=== PATIENT | female | born 1970 | race Caucasian/White ===

== ENCOUNTER 2017-10-09 14:34 | Emergency (ER) | payer OTHER ==
[2017-10-09 15:18] VITALS: BP 112/81; PULSE 89; RESP 16; TEMP 97.9
[2017-10-09] MEDS ORDERED: KETOROLAC 30 MG/ML 1 ML VIAL IM STA (15:31)
--- NOTE | 2017-10-09 15:45 | ED ---
General Adult HPI - General Chief complaint: Back Pain/Injury Stated complaint: BACK PAIN Time Seen by Provider: 10/09/17 15:19 Source: patient, RN notes reviewed Mode of arrival: wheelchair Limitations: no limitations - History of Present Illness Initial comments: 46-year-old female presents to the emergency department for a chief complaint of exacerbation of chronic back pain. Patient states the pain worsened today. Patient has been helping her sister with a grad sale and thinks she overdid it. She denies any other acute injuries. Patient denies any bladder or bowel changes. She states she is urinating regularly. Patient denies any new numbness in the lower extremities. No numbness in the saddle region. No shooting pain down the legs. Patient states her back pain is mostly left- sided. Patient states she has chronic back pain which is treated by a pain management doctor. She states she has a stimulator in her spine. Patient states she takes [place] for pain but it is not helping. Patient states she is driving home from the ER today. Patient denies any chance of . Patient has no other complaints at this time including shortness of breath, chest pain, abdominal pain, nausea or vomiting, headache, or visual changes. - Related Data Home Medications Medication Instructions Recorded Confirmed Albuterol Inhaler [Ventolin Hfa 2 puff INHALATION RT-Q6H PRN 07/07/15 10/09/17 Inhaler] Diazepam [Valium] 10 mg PO BID PRN 07/07/15 10/09/17 Furosemide [Lasix] 20 mg PO DAILY PRN 07/07/15 10/09/17 HYDROcodone/APAP 10-325MG [[place] 1 tab PO Q4HR PRN 07/07/15 10/09/17 10-325] Lurasidone HCl [Latuda] 20 mg PO HS 07/07/15 10/09/17 Polyethylene Glycol 3350 [Miralax] 17 gm PO DAILY PRN 07/07/15 10/09/17 lamoTRIgine [LaMICtal] 100 mg PO BID 07/07/15 10/09/17 Dextroamphetamine/Amphetamine 10 mg PO DAILY@1200 04/04/16 10/09/17 [Adderall Xr] Dextroamphetamine/Amphetamine 30 mg PO QAM 04/04/16 10/09/17 [Adderall Xr] Previous Rx's Medication Instructions Recorded Ciprofloxacin HCl [Cipro] 500 mg PO Q12HR #14 tablet 04/04/16 Ondansetron Odt [Zofran ODT] 4 mg PO Q8HR PRN #20 tab 04/04/16 Phenazopyridine [Pyridium] 100 mg PO TID #9 tablet 04/04/16 predniSONE 50 mg PO DAILY #5 tablet 10/09/17 Allergies Allergy/AdvReac Type Severity Reaction Status Date / Time azithromycin [From Zithromax] Allergy Swelling Verified 10/09/17 15:18 Review of Systems ROS Statement: Those systems with pertinent positive or pertinent negative responses have been documented in the HPI. ROS Other: All systems not noted in ROS Statement are negative. Past Medical History Past Medical History: Fibromyalgia Additional Past Medical History / Comment(s): BACK PAIN, History of Any Multi-Drug Resistant Organisms: None Reported Past Surgical History: Back Surgery Additional Past Surgical History / Comment(s): PAIN PUMP Past Psychological History: Anxiety, Bipolar Smoking Status: Never smoker Past Alcohol Use History: None Reported Past Drug Use History: None Reported General Exam Limitations: no limitations General appearance: alert, in no apparent distress Head exam: Present: atraumatic, normocephalic, normal inspection Neck exam: Present: normal inspection, full ROM. Absent: tenderness, meningismus, lymphadenopathy Respiratory exam: Present: normal lung sounds bilaterally. Absent: respiratory distress, wheezes, rales, rhonchi, stridor Cardiovascular Exam: Present: regular rate, normal rhythm, normal heart sounds. Absent: systolic murmur, diastolic murmur, rubs, gallop, clicks Extremities exam: Present: normal capillary refill (Refill less than 2 seconds in PD and PT pulses 2+ in lower extremities bilaterally. Sensation intact in lower extremities bilaterally). Absent: pedal edema Back exam: Present: tenderness (Tenderness to the lumbar spine.), paraspinal tenderness (Lower left sided paraspinal tenderness.), vertebral tenderness ( Spinal tenderness over the lumbar spine.). Absent: full ROM (Patient has limited flexion and extension of the lumbar spine.) Neurological exam: Present: alert, oriented X3, CN II-XII intact Psychiatric exam: Present: normal affect, normal mood Course Vital Signs 10/09/17 15:16 Temperature 97.9 F Pulse Rate 89 Respiratory 16 Rate Blood Pressure 112/81 O2 Sat by Pulse 100 Oximetry Medical Decision Making - Medical Decision Making 46-year-old female since to the emergency determine for chief complaint of chronic back pain exacerbation. Patient states she it was helping her sister with a garage sale today and over did it. No other acute injuries. Patient denies IV drug use, saddle anesthesia, or bladder or bowel changes. Patient is urinating regularly. Patient has chronic numbness in her lower extremities bilaterally. No new numbness. No shooting pains. On exam patient does have limited range of motion. She did walk into the emergency department. Neurovascular intact in lower extremities bilaterally. I offered patient an x- ray which she thinks is necessary. X-ray showed no acute fractures or dislocations. There is mild retrolisthesis. Patient is driving home today so was given Toradol. Patient states the Toradol helped with her pain and she is comfortable going home and following up with her pain management doctor. She will continue the [place] given by pain management. She can take Motrin on top of that. She was also given a prescription for a steroid which she will take for that left-sided back pain. She is aware to return to the emergency Department if she has any worsening symptoms or bladder or bowel changes. Otherwise she will follow-up with pain management. Disposition Clinical Impression: Back pain Disposition: HOME SELF-CARE Condition: Good Instructions: Chronic Back Pain (ED) Additional Instructions: Please continue [place] for pain relief. You may also take Motrin. Take steroid as directed. Return to the emergency department if you have any worsening symptoms or bladder/bowel changes. Otherwise follow-up with pain management doctor in one to 2 days. Prescriptions: predniSONE 50 mg PO DAILY #5 tablet Is patient prescribed a controlled substance at d/c from ED?: No Referrals: Nonstaff,Physician [Primary Care Provider] - 1-2 days Time of Disposition: 16:22
--- NOTE | 2017-10-09 15:59 | XR ---
EXAMINATION TYPE: XR lumbar spine 2 or 3V DATE OF EXAM: 10/09/2017 COMPARISON: 08/11/2014 HISTORY: Low back pain TECHNIQUE: Three-view lumbar spine FINDINGS: Pedicle screws are present L5 and S1. Laminectomies at L5. Remaining pedicles are intact. D isc space narrowing is present L5-S1 and mild disc space narrowing is seen the remaining lumbar spine . Mild retrolisthesis of L2 on L3 appears to be present. Catheter is present in the epidural space. IMPRESSION: 1. Degenerative disc changes. 2. Minimal retrolisthesis of L2 posteriorly L3.
== END 2017-10-09 16:32 | disposition home or self-care (01) ==
LOC: EC 14:34
DX: M54.9 Dorsalgia, unspecified (principal); G89.29 Other chronic pain; M79.7 Fibromyalgia; F31.9 Bipolar disorder, unspecified; F41.9 Anxiety disorder, unspecified; Z79.899 Other long term (current) drug therapy; Z88.1 Allergy status to other antibiotic agents; Z98.890 Other specified postprocedural states
CPT/HCPCS: 72100; 99283; 96372; J1885

== ENCOUNTER 2017-12-30 03:47 | Observation (INO) | payer OTHER ==
[2017-12-30] MEDS ORDERED: SODIUM CHLORIDE 0.9% 1,000 ML IV STA (03:51)
[2017-12-30] MEDS ORDERED: ACETAMINOPHEN IV (For NPO) 1,000 MG in EMPTY BAG 1 BAG IVPB ONE (04:43)
[2017-12-30] MEDS ORDERED: MAG HYDROX/AL HYDROX/SIMETH 30 ML, HYOSCYAMINE ELIXIR 10 ML, CIMETIDINE HCL 300 MG, LID... PO STA ×4 (04:47)
--- NOTE | 2017-12-30 04:49 | ED ---
General Adult HPI - General Chief complaint: Back Pain/Injury Stated complaint: abd pain Time Seen by Provider: 12/30/17 03:51 Source: patient, EMS, RN notes reviewed, old records reviewed Mode of arrival: EMS Limitations: no limitations - History of Present Illness Initial comments: 47-year-old female presenting with epigastric abdominal pain and chest pain. Patient's pain began several hours prior to presentation. Describes it as sharp pain in the middle of her abdomen and lower chest with some pain radiating to her back. Denies history of pancreatitis. She does admit to occasional alcohol. She has chronic low back pain for which she has a Dilaudid pain pump. Denies significant nausea or vomiting. Denies fever or chills. Patient has past surgical history of appendectomy, she still has her gallbladder. Pain woke patient from sleep. Denies radiating pain to her arms or jaw. - Related Data Home Medications Medication Instructions Recorded Confirmed Albuterol Inhaler [Ventolin Hfa 2 puff INHALATION RT-Q6H PRN 07/07/15 10/09/17 Inhaler] Diazepam [Valium] 10 mg PO BID PRN 07/07/15 10/09/17 Furosemide [Lasix] 20 mg PO DAILY PRN 07/07/15 10/09/17 HYDROcodone/APAP 10-325MG [[place] 1 tab PO Q4HR PRN 07/07/15 10/09/17 10-325] Lurasidone HCl [Latuda] 20 mg PO HS 07/07/15 10/09/17 Polyethylene Glycol 3350 [Miralax] 17 gm PO DAILY PRN 07/07/15 10/09/17 lamoTRIgine [LaMICtal] 100 mg PO BID 07/07/15 10/09/17 Dextroamphetamine/Amphetamine 10 mg PO DAILY@1200 04/04/16 10/09/17 [Adderall Xr] Dextroamphetamine/Amphetamine 30 mg PO QAM 04/04/16 10/09/17 [Adderall Xr] Previous Rx's Medication Instructions Recorded Ciprofloxacin HCl [Cipro] 500 mg PO Q12HR #14 tablet 04/04/16 Ondansetron Odt [Zofran ODT] 4 mg PO Q8HR PRN #20 tab 04/04/16 Phenazopyridine [Pyridium] 100 mg PO TID #9 tablet 04/04/16 predniSONE 50 mg PO DAILY #5 tablet 10/09/17 Allergies Allergy/AdvReac Type Severity Reaction Status Date / Time azithromycin [From Zithromax] Allergy Swelling Verified 10/09/17 15:18 Review of Systems ROS Statement: Those systems with pertinent positive or pertinent negative responses have been documented in the HPI. ROS Other: All systems not noted in ROS Statement are negative. Past Medical History Past Medical History: Fibromyalgia Additional Past Medical History / Comment(s): BACK PAIN, History of Any Multi-Drug Resistant Organisms: None Reported Past Surgical History: Back Surgery Additional Past Surgical History / Comment(s): PAIN PUMP Past Psychological History: Anxiety, Bipolar Smoking Status: Never smoker Past Alcohol Use History: None Reported Past Drug Use History: None Reported General Exam Limitations: no limitations General appearance: alert, in no apparent distress Head exam: Present: atraumatic, normocephalic Eye exam: Present: normal appearance, PERRL ENT exam: Present: normal exam Neck exam: Present: normal inspection. Absent: tenderness, meningismus Respiratory exam: Present: normal lung sounds bilaterally. Absent: respiratory distress Cardiovascular Exam: Present: regular rate, normal rhythm GI/Abdominal exam: Present: soft, tenderness (Epigastric tenderness to palpation ). Absent: distended, guarding, rebound Extremities exam: Present: normal inspection, normal capillary refill. Absent: pedal edema Neurological exam: Present: alert, oriented X3. Absent: motor sensory deficit Psychiatric exam: Present: normal affect, normal mood Skin exam: Present: warm, dry, intact. Absent: cyanosis, diaphoretic Course Vital Signs 12/30/17 12/30/17 03:54 06:15 Temperature 97.9 F Pulse Rate 68 73 Respiratory 16 18 Rate Blood Pressure 136/70 87/54 O2 Sat by Pulse 100 98 Oximetry EKG Findings - EKG Comments: EKG Findings:: EKG: Normal sinus rhythm, rate of 75, MT interval 142, QRS duration 60, QTC 444, no ST segment elevation or depression. Medical Decision Making - Medical Decision Making 47-year-old female presenting with chief complaint of abdominal pain and lower chest pain. Patient's symptoms do seem more consistent with abdominal pain. However she describes a chest pain and pressure associated with this. She has no known history of CAD. She has some mild abdominal tenderness. Workup in the emergency department reveals normal CBC, normal CMP, troponin is negative. CT abdomen is obtained that is negative for any acute intra-abdominal process. Symptoms likely related to gastritis however she continues to describe a chest pressure. She will be kept in observation for continue symptomatic treatment, she is started on a proton pump inhibitor. Serial cardiac enzymes will be obtained to ensure that this is noncardiac in nature. - Lab Data Result diagrams: 12/30/17 05:08 12/30/17 05:08 Lab Results 12/30/17 12/30/17 12/30/17 Range/Units 05:08 05:08 05:08 WBC 9.6 (3.8-10.6) k/uL RBC 4.58 (3.80-5.40) m/uL Hgb 12.4 (11.4-16.0) gm/dL Hct 39.0 (34.0-46.0) % MCV 85.1 (80.0-100.0) fL MCH 27.1 (25.0-35.0) pg MCHC 31.8 (31.0-37.0) g/dL RDW 14.1 (11.5-15.5) % Plt Count 216 (150-450) k/uL Neutrophils % 84 % Lymphocytes % 11 % Monocytes % 3 % Eosinophils % 1 % Basophils % 0 % Neutrophils # 8.0 H (1.3-7.7) k/uL Lymphocytes # 1.1 (1.0-4.8) k/uL Monocytes # 0.3 (0-1.0) k/uL Eosinophils # 0.1 (0-0.7) k/uL Basophils # 0.0 (0-0.2) k/uL Sodium 138 (137-145) mmol/L Potassium 3.6 (3.5-5.1) mmol/L Chloride 107 (98-107) mmol/L Carbon Dioxide 24 (22-30) mmol/L Anion Gap 7 mmol/L BUN 12 (7-17) mg/dL Creatinine 0.80 (0.52-1.04) mg/dL Est GFR (CKD-EPI)AfAm >90 (>60 ml/min/1.73 sqM) Est GFR (CKD-EPI)NonAf 88 (>60 ml/min/1.73 sqM) Glucose 110 H (74-99) mg/dL Plasma Lactic Acid [place] 1.2 (0.7-2.0) mmol/L Calcium 9.0 (8.4-10.2) mg/dL Total Bilirubin 0.2 (0.2-1.3) mg/dL AST 65 H (14-36) U/L ALT 45 (9-52) U/L Alkaline Phosphatase 96 (38-126) U/L Troponin I (0.000-0.034) ng/mL Total Protein 6.2 L (6.3-8.2) g/dL Albumin 3.6 (3.5-5.0) g/dL Amylase 59 (30-110) U/L Lipase 42 (23-300) U/L 12/30/17 Range/Units 05:08 WBC (3.8-10.6) k/uL RBC (3.80-5.40) m/uL Hgb (11.4-16.0) gm/dL Hct (34.0-46.0) % MCV (80.0-100.0) fL MCH (25.0-35.0) pg MCHC (31.0-37.0) g/dL RDW (11.5-15.5) % Plt Count (150-450) k/uL Neutrophils % % Lymphocytes % % Monocytes % % Eosinophils % % Basophils % % Neutrophils # (1.3-7.7) k/uL Lymphocytes # (1.0-4.8) k/uL Monocytes # (0-1.0) k/uL Eosinophils # (0-0.7) k/uL Basophils # (0-0.2) k/uL Sodium (137-145) mmol/L Potassium (3.5-5.1) mmol/L Chloride (98-107) mmol/L Carbon Dioxide (22-30) mmol/L Anion Gap mmol/L BUN (7-17) mg/dL Creatinine (0.52-1.04) mg/dL Est GFR (CKD-EPI)AfAm (>60 ml/min/1.73 sqM) Est GFR (CKD-EPI)NonAf (>60 ml/min/1.73 sqM) Glucose (74-99) mg/dL Plasma Lactic Acid [place] (0.7-2.0) mmol/L Calcium (8.4-10.2) mg/dL Total Bilirubin (0.2-1.3) mg/dL AST (14-36) U/L ALT (9-52) U/L Alkaline Phosphatase (38-126) U/L Troponin I <0.012 (0.000-0.034) ng/mL Total Protein (6.3-8.2) g/dL Albumin (3.5-5.0) g/dL Amylase (30-110) U/L Lipase (23-300) U/L Disposition Clinical Impression: Abdominal pain, Chest pain Disposition: ADMITTED IP TO THIS [facility] Condition: Stable Is patient prescribed a controlled substance at d/c from ED?: No Referrals: Nonstaff,Physician [Primary Care Provider] - 1-2 days Decision to Admit Reason: Admit from EC Decision Date: 12/30/17 Decision Time: 06:52
[2017-12-30 05:24] LABS: Basophils % (A) 0 %; Eosinophils # (A) 0.1 k/uL (0-0.7); Eosinophils % (A) 1 %; HGB 12.4 gm/dL (11.4-16.0); Lymphocytes # (A) 1.1 k/uL (1.0-4.8); Lymphocytes % (A) 11 %; MCH 27.1 pg (25.0-35.0); MCHC 31.8 g/dL (31.0-37.0); MCV 85.1 fL (80.0-100.0); Mean Platelet Volume 6.3; Monocytes # (A) 0.3 k/uL (0-1.0); Monocytes % (A) 3 %; Neutrophils % (A) 84 %; Platelet Count 216 k/uL (150-450); RBC 4.58 m/uL (3.80-5.40); RDW 14.1 % (11.5-15.5); WBC 9.6 k/uL (3.8-10.6)
[2017-12-30 05:38] LABS: ALT 45 U/L (9-52); AST 65 U/L (14-36); Albumin 3.6 g/dL (3.5-5.0); Alkaline Phosphatase 96 U/L (38-126); Amylase 59 U/L (30-110); Anion Gap 7 mmol/L; Blood Urea Nitrogen 12 mg/dL (7-17); Carbon Dioxide 24 mmol/L (22-30); Chloride 107 mmol/L (98-107); Glucose 110 mg/dL (74-99); Lipase 42 U/L (23-300); Potassium 3.6 mmol/L (3.5-5.1); Sodium 138 mmol/L (137-145); Total Bilirubin 0.2 mg/dL (0.2-1.3); Total Protein 6.2 g/dL (6.3-8.2)
--- NOTE | 2017-12-30 06:37 | CT ---
EXAM: CT Abdomen and Pelvis With Intravenous Contrast Indication: abdominal pain TECHNIQUE: Axial computed tomography images of the abdomen and pelvis with intravenous contrast. CTDI is 33.5 mGy and DLP is 1304.9 mGy-cm. This CT exam was performed using one or more of the following dose reduction techniques: automated exposure control, adjustment of the mA and/or kV according to patient size, and/or use of iterative reconstruction technique. COMPARISON: No relevant prior studies available. FINDINGS: Lung bases: Unremarkable. No mass. No consolidation. ABDOMEN: Liver: Unremarkable. No mass. Gallbladder and bile ducts: Unremarkable. No calcified stones. No ductal dilation. Pancreas: Unremarkable. No mass. No ductal dilation. Spleen: Unremarkable. No splenomegaly. Adrenals: Unremarkable. No mass. Kidneys and ureters: Unremarkable. No solid mass. No hydronephrosis. Stomach and bowel: Unremarkable. No obstruction. No mucosal thickening. PELVIS: Appendix: Surgical clips noted adjacent to cecum appendix not identified. No inflammatory changes noted Bladder: Unremarkable. No mass. Reproductive: Unremarkable as visualized. ABDOMEN and PELVIS: Intraperitoneal space: Unremarkable. No free air. No significant fluid collection. Bones/joints: No acute fracture. No dislocation. Soft tissues: Spinal stimulator implanted over the anterior right lower abdominal wall Vasculature: Unremarkable. No abdominal aortic aneurysm. Lymph nodes: Unremarkable. No enlarged lymph nodes. IMPRESSION: No acute abnormality.
[2017-12-30] MEDS ORDERED: PANTOPRAZOLE 40 MG/10 ML VIAL IVP STA (06:44)
[2017-12-30] MEDS ORDERED: SODIUM CHLORIDE 0.9% 1,000 ML IV SCH (06:45)
[2017-12-30] MEDS ORDERED: ONDANSETRON 4 MG/2 ML VIAL IVP PRN (06:45)
[2017-12-30] MEDS ORDERED: NALOXONE 0.4 MG/ML 1 ML VIAL IV PRN (06:45)
[2017-12-30] MEDS ORDERED: ACETAMINOPHEN TAB 325 MG TAB PO PRN (06:45)
[2017-12-30] MEDS ORDERED: MAG HYDROX/AL HYDROX/SIMETH 30 ML, HYOSCYAMINE ELIXIR 10 ML, CIMETIDINE HCL 300 MG PO PRN ×3 (06:47)
[2017-12-30 07:35] LABS: Appearance,Urine Clear (Clear); Bilirubin,Urine Negative (Negative); Blood,Urine Negative (Negative); Color,Urine Yellow; Glucose,Urine (UA) Negative (Negative); Ketones,Urine Negative (Negative); Leukocyte Esterase,Urine Negative (Negative); Nitrite,Urine Negative (Negative); PH, Urine 7.5 (5.0-8.0); Protein,Urine Negative (Negative); Urobilinogen,Urine <2.0 mg/dL (<2.0)
[2017-12-30 08:12] LABS: Specific Gravity,Urine >1.050 (1.001-1.035)
[2017-12-30 09:23] VITALS: RESP 16
[2017-12-30 11:50] LABS: Creatine Kinase 76 U/L (30-135)
[2017-12-30 12:01] LABS: Creatine Kinase MB 1.2 ng/mL (0.0-2.4); Troponin I <0.012 ng/mL (0.000-0.034)
[2017-12-30 14:50] VITALS: BP 120/74; PULSE 64; TEMP 97.2
--- NOTE | 2017-12-30 14:50 | P.HPIM ---
History of Present Illness 47-year-old female presenting with epigastric abdominal pain and chest pain. Patient's pain began several hours prior to presentation. Describes it as sharp pain in the middle of her abdomen and lower chest with some pain radiating to her back. Denies history of pancreatitis. She does admit to occasional alcohol. She has chronic low back pain for which she has a Dilaudid pain pump. Denies significant nausea or vomiting. Denies fever or chills. Patient has past surgical history of appendectomy, she still has her gallbladder. Pain woke patient from sleep. Denies radiating pain to her arms or jaw. Patient denied any fever chills. Patient was started on Protonix patient is able to tolerate liquid diet will be advanced to soft diet and patient will be discharged on Prilosec. CAT scan of the abdomen did not show any significant abnormality. 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 Review of Systems REVIEW OF SYSTEMS: CONSTITUTIONAL: No fever, no malaise, no fatigue. HEENT: No recent visual problems or hearing problems. Denied any sore throat. CARDIOVASCULAR: No chest pain, orthopnea, PND, no palpitations, no syncope. PULMONARY: No shortness of breath, no cough, no hemoptysis. GASTROINTESTINAL: No diarrhea, no nausea, no vomiting. NEUROLOGICAL: No headaches, no weakness, no numbness. HEMATOLOGICAL: Denies any bleeding or petechiae. GENITOURINARY: Denies any burning micturition, frequency, or urgency. MUSCULOSKELETAL/RHEUMATOLOGICAL: Denies any joint pain, swelling, or any muscle pain. ENDOCRINE: Denies any polyuria or polydipsia. The rest of the 14-point review of systems is negative. Past Medical History Past Medical History: Fibromyalgia Additional Past Medical History / Comment(s): Chronic low back pain with dilaudid pain pump in place, arthritis bilateral knees, occasional constipation. History of Any Multi-Drug Resistant Organisms: None Reported Past Surgical History: Appendectomy, Back Surgery, Section, Orthopedic Surgery, Tonsillectomy Additional Past Surgical History / Comment(s): Low back surgery x3 with rods and screws, pain pump, L plantar fasciotomy, Past Anesthesia/Blood Transfusion Reactions: No Reported Reaction, Motion Sickness Smoking Status: Former smoker - Past Family History Father Family Medical History: Coronary Artery Disease (CAD) Additional Family Medical History / Comment(s): Father had CABG. He is from unknown causes. Mother Family Medical History: Fibromyalgia, Osteoarthritis (OA) Additional Family Medical History / Comment(s): Mother id 68yrs old and has back problems. Back problems run in mother's side of family. Medications and Allergies Home Medications Medication Instructions Recorded Confirmed Type HYDROcodone/APAP 10-325MG [[place] 1 tab PO Q4HR PRN 07/07/15 12/30/17 History 10-325] Cyclobenzaprine HCl 10 mg PO TID PRN 12/30/17 12/30/17 History Diazepam 2 mg PO DAILY PRN 12/30/17 12/30/17 History Gabapentin [Neurontin] 300 mg PO TID 12/30/17 12/30/17 History Omeprazole [PriLOSEC] 40 mg PO AC-BRKFST #30 capsule. 12/30/17 Rx Pregabalin [Lyrica] 50 mg PO TID 12/30/17 12/30/17 History Allergies Allergy/AdvReac Type Severity Reaction Status Date / Time azithromycin [From Zithromax] Allergy Swelling Verified 10/09/17 15:18 Physical Exam Vitals: Vital Signs Temp Pulse Pulse Resp BP BP Pulse Ox 12/30/17 09:27 96.9 F L 58 L 16 101/64 99 12/30/17 08:59 96.9 F L 59 L 16 106/65 99 12/30/17 08:47 58 L 18 101/64 97 12/30/17 08:40 69 18 106/81 98 12/30/17 07:19 66 18 104/57 99 12/30/17 07:00 61 18 97/71 99 12/30/17 06:15 73 18 87/54 98 12/30/17 03:54 97.9 F 68 16 136/70 100 Intake and Output 12/29/17 12/30/17 12/30/17 22:59 06:59 14:59 Intake Total 900 Balance 900 Intake: Amount of Fluid Infused ( 300 ml) Oral 600 Other: # Voids 1 Weight 95.254 kg PHYSICAL EXAMINATION: GENERAL: The patient is alert and oriented x3, not in any acute distress. Well developed, well nourished. HEENT: Pupils are round and equally reacting to light. EOMI. No scleral icterus. No conjunctival pallor. Normocephalic, atraumatic. No pharyngeal erythema. No thyromegaly. CARDIOVASCULAR: S1 and S2 present. No murmurs, rubs, or gallops. PULMONARY: Chest is clear to auscultation, no wheezing or crackles. ABDOMEN: Soft, nontender, nondistended, normoactive bowel sounds. No palpable organomegaly. Pain pump right midabdominal area MUSCULOSKELETAL: No joint swelling or deformity. EXTREMITIES: No cyanosis, clubbing, or pedal edema. NEUROLOGICAL: Gross neurological examination did not reveal any focal deficits. SKIN: No rashes. Results CBC & Chem 7: 12/30/17 05:08 12/30/17 05:08 Labs: Abnormal Lab Results - Last 24 Hours (Table) 12/30/17 12/30/17 12/30/17 Range/Units 05:08 05:08 07:17 Neutrophils # 8.0 H (1.3-7.7) k/uL Glucose 110 H (74-99) mg/dL AST 65 H (14-36) U/L Total Protein 6.2 L (6.3-8.2) g/dL Ur Specific [place] >1.050 H (1.001-1.035) Thrombosis Risk Factor Assmnt - Choose All That Apply Any of the Below Risk Factors Present?: Yes Each Factor Represents 1 point: Age 41-60 years, Obesity (BMI >25) Other Risk Factors: No Other congenital or acquired thrombophilia - If yes, enter type in comment: No Thrombosis Risk Factor Assessment Total Risk Factor Score: 2 Thrombosis Risk Factor Assessment Level: Low Risk Assessment and Plan Plan: -Abdominal pain mostly epigastric: Probably has peptic ulcer disease or gastritis patient will be prescribed 15 days of Prilosec can resume Zantac after that. CAT scan of the abdomen is negative abdomen is soft nonsurgical abdomen. -Fibromyalgia -Chronic back pain Bipolar disorder Patient can resume and continue her rest of her home medications follow with the primary care physician in 3-7 days..
--- NOTE | 2017-12-30 14:50 | P.DS ---
Providers Date of admission: 12/30/17 06:45 Attending physician: Dandre Benavides Primary care physician: Physician Nonstaff Hospital Course: As mentioned in HPI Patient Condition at Discharge: Stable Plan - Discharge Summary Discharge Rx Participant: No New Discharge Prescriptions: New Omeprazole [PriLOSEC] 40 mg PO AC-BRKFST #30 capsule.dr Villegas Ranitidine HCl [Zantac] 150 mg PO BID No Action HYDROcodone/APAP 10-325MG [[place] 10-325] 1 tab PO Q4HR PRN PRN Reason: Pain Diazepam 2 mg PO DAILY PRN PRN Reason: Anxiety Cyclobenzaprine HCl 10 mg PO TID PRN PRN Reason: Muscle Spasm Pregabalin [Lyrica] 50 mg PO TID Gabapentin [Neurontin] 300 mg PO TID Discharge Medication List HYDROcodone/APAP 10-325MG [[place] 10-325] 1 tab PO Q4HR PRN 07/07/15 [History] Cyclobenzaprine HCl 10 mg PO TID PRN 12/30/17 [History] Diazepam 2 mg PO DAILY PRN 12/30/17 [History] Gabapentin [Neurontin] 300 mg PO TID 12/30/17 [History] Omeprazole [PriLOSEC] 40 mg PO AC-BRKFST #30 capsule. 12/30/17 [Rx] Pregabalin [Lyrica] 50 mg PO TID 12/30/17 [History] Follow up Appointment(s)/Referral(s): Nonstaff,Physician [Primary Care Provider] - 1-2 days Patient Instructions/Handouts: Gas and Bloating (GEN) Discharge Disposition: HOME SELF-CARE
[2017-12-31] MEDS ORDERED: PANTOPRAZOLE 40 MG/10 ML VIAL IVP SCH (09:00)
== END 2017-12-30 14:58 | disposition home or self-care (01) ==
LOC: EC 03:47 → 3OBS 06:45 → 4MS4W 08:28
PROVIDERS: ADMIT Internal Medicine; ATTEND Internal Medicine
DX: R10.13 Epigastric pain (principal); R07.89 Other chest pain; G89.29 Other chronic pain; M54.5 Low back pain; Z79.891 Long term (current) use of opiate analgesic; Z79.899 Other long term (current) drug therapy; Z88.1 Allergy status to other antibiotic agents; M79.7 Fibromyalgia; F41.9 Anxiety disorder, unspecified; F31.9 Bipolar disorder, unspecified; M17.0 Bilateral primary osteoarthritis of knee; K59.00 Constipation, unspecified; Z87.891 Personal history of nicotine dependence; Z82.49 Family history of ischemic heart disease and other diseases of the circulatory system; E66.9 Obesity, unspecified; Z68.32 Body mass index [BMI] 32.0-32.9, adult; Z90.49 Acquired absence of other specified parts of digestive tract
CPT/HCPCS: 99285; 96365 ×2; 96366 ×4; 96361 ×4; 96375 ×2; 36415; 93005; 80053; 82150; 82550; 82553; 83605; 83690; 84484; 85025; 81003; 74177; G0378 ×2; J0131; C9113; Q9967

== ENCOUNTER 2018-05-09 07:29 | Emergency (ER) | payer OTHER ==
[2018-05-09 07:35] VITALS: RESP 18
[2018-05-09] MEDS ORDERED: KETOROLAC 60 MG/2 ML VIAL IM STA (08:25)
--- NOTE | 2018-05-09 08:29 | ED ---
Lower Extremity Injury HPI - General Chief Complaint: Extremity Injury, Lower Stated Complaint: lt sided hip pain Time Seen by Provider: 05/09/18 08:04 Source: patient, RN notes reviewed Mode of arrival: ambulatory Limitations: no limitations - History of Present Illness Initial Comments: 47-year-old female presents emergency Department chief complaint left hip pain. Patient states she's been having ongoing issues for last 2 months and states that has worsened. Patient states that she smokes have an MRI states that her father and states that she did not go. Patient states the pain worsened recently. She states it feels deep in the joint. Patient states that she does have chronic back issues but does not feel like it stems from her back at this time. Denies any bowel bladder and Kienitz retention. Patient states she does take chronic pain meds and has a morphine pump. Patient denies any dysuria, hematuria. Denies any redness or joint. - Related Data Home Medications Medication Instructions Recorded Confirmed HYDROcodone/APAP 10-325MG [[place] 1 tab PO Q4HR PRN 07/07/15 12/30/17 10-325] Cyclobenzaprine HCl 10 mg PO TID PRN 12/30/17 12/30/17 Diazepam 2 mg PO DAILY PRN 12/30/17 12/30/17 Gabapentin [Neurontin] 300 mg PO TID 12/30/17 12/30/17 Pregabalin [Lyrica] 50 mg PO TID 12/30/17 12/30/17 Previous Rx's Medication Instructions Recorded Omeprazole [PriLOSEC] 40 mg PO AC-BRKFST #30 capsule. 12/30/17 Allergies Allergy/AdvReac Type Severity Reaction Status Date / Time azithromycin [From Zithromax] Allergy Swelling Verified 05/09/18 07:35 Review of Systems ROS Statement: Those systems with pertinent positive or pertinent negative responses have been documented in the HPI. ROS Other: All systems not noted in ROS Statement are negative. Past Medical History Past Medical History: Fibromyalgia Additional Past Medical History / Comment(s): Chronic low back pain with dilaudid pain pump in place, arthritis bilateral knees, occasional constipation. History of Any Multi-Drug Resistant Organisms: None Reported Past Surgical History: Appendectomy, Back Surgery, Section, Orthopedic Surgery, Tonsillectomy Additional Past Surgical History / Comment(s): Low back surgery x3 with rods and screws, pain pump, L plantar fasciotomy, Past Anesthesia/Blood Transfusion Reactions: No Reported Reaction, Motion Sickness Past Psychological History: Anxiety, Bipolar Smoking Status: Former smoker Past Alcohol Use History: None Reported Past Drug Use History: Opiates - Past Family History Father Family Medical History: Coronary Artery Disease (CAD) Additional Family Medical History / Comment(s): Father had CABG. He is from unknown causes. Mother Family Medical History: Fibromyalgia, Osteoarthritis (OA) Additional Family Medical History / Comment(s): Mother id 68yrs old and has back problems. Back problems run in mother's side of family. General Exam Limitations: no limitations General appearance: alert, in no apparent distress Head exam: Present: atraumatic, normocephalic, normal inspection Neck exam: Present: normal inspection. Absent: tenderness, meningismus, lymphadenopathy Respiratory exam: Present: normal lung sounds bilaterally. Absent: respiratory distress, wheezes, rales, rhonchi, stridor Cardiovascular Exam: Present: regular rate, normal rhythm, normal heart sounds. Absent: systolic murmur, diastolic murmur, rubs, gallop, clicks Extremities exam: Present: other (Left hip full range of motion though mild discomfort with certain range of motion, neurovascular intact with equal pedal pulses, no warmth or increased redness to left hip) Course Vital Signs 05/09/18 07:31 Temperature 98.1 F Pulse Rate 79 Respiratory 18 Rate Blood Pressure 110/70 O2 Sat by Pulse 100 Oximetry Medical Decision Making - Medical Decision Making 47-year-old female presents emergency from for left hip pain. Patient had prior imaging including x-rays which show no acute abnormality. Patient was advised to have an MRI as his been a chronic issue. Patient is advised to call her physician for her MRI prescription patient be given an injection of Toradol at this time. There is no concern for septic joint, there most likely is underlying labral tear. Patient was in physical therapy had improvement prior. Disposition Clinical Impression: Left hip pain Disposition: HOME SELF-CARE Condition: Stable Instructions: Hip Pain (ED) Additional Instructions: Please return to the Emergency Department if symptoms worsen or any other concerns. Is patient prescribed a controlled substance at d/c from ED?: No Referrals: Nonstaff,Physician [Primary Care Provider] - 1-2 days Time of Disposition: 08:28
[2018-05-09 09:04] VITALS: BP 111/68; PULSE 77; TEMP 98
== END 2018-05-09 08:59 | disposition home or self-care (01) ==
LOC: EC 07:29
DX: M25.552 Pain in left hip (principal); M79.7 Fibromyalgia; G89.29 Other chronic pain; M54.5 Low back pain; Z87.891 Personal history of nicotine dependence; Z79.899 Other long term (current) drug therapy; Z88.1 Allergy status to other antibiotic agents; Z98.890 Other specified postprocedural states
CPT/HCPCS: 99283; 96372; J1885

== ENCOUNTER 2018-09-03 11:37 | Day surgery (SDC) | payer OTHER ==
[2018-09-01 18:26] VITALS: BMI 32.8
[2018-09-03] MEDS ORDERED: LIDOCAINE 1% 20 ML VIAL (10MG/ML) FOR IV START INTRADERMA ONE (12:20)
[2018-09-03] MEDS ORDERED: LACTATED RINGERS 1,000 ML IV ONE (12:21)
[2018-09-03 12:27] VITALS: RESP 16; TEMP 98.1
[2018-09-03 12:32] LABS: Glucose,Whole Blood 84 mg/dL (75-99)
[2018-09-03] MEDS ORDERED: fentaNYL (PF) 50 MCG/ML 2 ML AMP ONE (12:53)
[2018-09-03] MEDS ORDERED: PROPOFOL 10 MG/ML 20 ML VIAL IV ONE (12:53)
[2018-09-03] MEDS ORDERED: MIDAZOLAM 2 MG/2 ML VIAL ONE (12:53)
--- NOTE | 2018-09-03 13:45 | P.PCN ---
Date of Procedure: 09/03/18 Description of Procedure: Brief history: 47-year-old female with a medical history significant for Virk's esophagus and peptic ulcer disease who presents for outpatient EGD and colonoscopy. The patient reports symptoms of [place] mouth, coughing and choking which is worse with lying down. She reports symptoms of dysphagia and odynophagia which can periodically occur with both liquids and solids. She is currently on lansoprazole and ranitidine which she takes at night. She reports occasional nausea and vomiting. She states that symptoms are worse with acidic foods. She denies any family history of GI malignancy except in her grandmother who have colon cancer. She does note intermittent blood per rectum. She reports constipation for which she has tried MiraLAX. She does report a borderline today. Remote history of colonoscopy and EGD 2 years ago per her report for surveillance of her Virk's esophagus. Procedure performed: Esophagogastroduodenoscopy with biopsy Colonoscopy Estimated blood loss: Minimal. Preoperative diagnosis: History of Virk's esophagus, GERD, hematochezia Anesthesia: MAC Procedure: After informed consent was obtained from the patient was brought into the endoscopy unit and IV sedation was administered by anesthesia under continuous monitoring. Initially upper endoscopy was done. The Olympus GF 190 video endoscope was inserted inserted into the mouth and esophagus intubated without any difficulty and was gradually advanced into the stomach and duodenum and carefully examined. The bulb and second part of the duodenum appeared normal, biopsied. The scope was then withdrawn into the stomach adequately insufflated with air and upon careful examination the antrum and body, cardia and fundus appeared normal except for some mild erythema of the antrum and body suggestive of mild gastritis was biopsied. The scope was then withdrawn into the esophagus. The GE junction was located at 36 cm to the incisors, with short segment Virk's noted and biopsied extensively. It appeared regular with no erythema erosions or ulcerations. Rest of the esophagus appeared normal. Patient tolerated the procedure well. At this time the patient continued to remain sedation. Initial digital rectal examination was normal. Olympus CF 190 video colonoscope was then inserted into the rectum and gradually advanced to the cecum without any difficulty. Careful examination was performed as the scope was gradually being withdrawn. Terminal ileum was intubated and appeared normal. The prep was excellent. The cecum, ascending colon, transverse colon, descending colon, sigmoid colon and rectum appeared normal. Retroflexion was performed in the rectum and no lesions were noted, moderate internal hemorrhoids seen. Patient tolerated the procedure well. Impression: 1. Mild gastritis biopsied. Duodenal biopsies. GE junction at 36 cm from the incisors biopsied in the setting of Virk's esophagus. 2. Moderate internal hemorrhoids. Recommendations: Findings of this examination were discussed with the patient as well as her family. Okay to resume diet. Await pathology from biopsies. Continue Prevacid therapy. Follow up in clinic as previously scheduled. Repeat colonoscopy in 10 years or sooner if signs or symptoms which warrant further evaluation and develop.
[2018-09-03 13:58] VITALS: BP 100/65; PULSE 92
== END 2018-09-03 14:09 | disposition home or self-care (01) ==
LOC: ORWHC2ENDO 11:37
PROVIDERS: ATTEND Internal Medicine
DX: K29.50 Unspecified chronic gastritis without bleeding (principal); K22.70 Barrett's esophagus without dysplasia; K21.9 Gastro-esophageal reflux disease without esophagitis; K64.8 Other hemorrhoids; K92.1 Melena; M79.7 Fibromyalgia; M19.90 Unspecified osteoarthritis, unspecified site; Z79.891 Long term (current) use of opiate analgesic; Z79.899 Other long term (current) drug therapy; Z88.1 Allergy status to other antibiotic agents; Z87.891 Personal history of nicotine dependence; I89.0 Lymphedema, not elsewhere classified; Z80.0 Family history of malignant neoplasm of digestive organs
CPT/HCPCS: 81025; 88305; 45378; 43239; J2250; J3010; J2704

== ENCOUNTER → 2019-11-15 | Day surgery (SDC) | payer OTHER ==
[2019-11-12 10:09] VITALS: BMI 31.0
[~2019-11-15] MED LIST: LACTATED RINGERS 1,000 ML IV SCH; LIDOCAINE 1% (10MG/ML) FOR IV START INTRADERMA PRN; LIDOCAINE 1% (10MG/ML) FOR IV START SQ ONE; LIDOCAINE 1% INJ 10MG/ML (20 ML MDV) ONE; PROPOFOL 10 MG/ML 20 ML VIAL IV ONE
[2019-11-15 12:36] VITALS: TEMP 95.6
--- NOTE | 2019-11-15 13:23 | P.PCN ---
Date of Procedure: 11/15/19 Description of Procedure: BRIEF HISTORY: Patient is a 49-year-old female with a history of Virk's esophagus presenting for EGD for evaluation, has a known history of ERCP with stent placement with the stent still in place. PROCEDURE PERFORMED: Esophagogastroduodenoscopy with biliary stent removal. PREOPERATIVE DIAGNOSIS: Virk's esophagus, biliary stent. ESTIMATED BLOOD LOSS: Minimal. IV sedation per anesthesia. PROCEDURE: After informed consent was obtained, the patient was brought into the endoscopy unit. IV sedation was administered by Anesthesia under continuous monitoring. Initially the Olympus GIF-190 video endoscope was inserted into the mouth. Esophagus intubated without any difficulty. It was gradually advanced into the stomach and duodenum and carefully examined. The bulb and the second part of the duodenum appeared normal, with a plastic biliary stent noted protruding from the major papilla. Snare was used to grasp the stent and remove it successfully. The scope at this time was withdrawn to the stomach, adequately insufflated with air, and upon careful examination, mucosa of the antrum, body, cardia and the fundus appeared normal. The scope was then withdrawn into the esophagus. The GE junction was located at 38 cm from the incisors, with short segment Virk's esophagus noted. The esophagus appeared normal. There were no erosions or ulcerations seen and the patient tolerated the procedure well. IMPRESSION: 1. Biliary stent removal, using endoscopic snare to remove previously placed palstic biliary stent. 2. Virk's esophagus. RECOMMENDATIONS: The findings of this examination were discussed with the patient. Okay to resume diet. Okay to resume medications. Follow-up in gastroenterology clinic as previously scheduled. Continue lansoprazole therapy and routine monitoring of Virk's esophagus with biopsies as previously scheduled.
[2019-11-15 13:25] VITALS: RESP 17
[2019-11-15 13:32] VITALS: BP 110/65; PULSE 71
== END ==
LOC: ORWHC2ENDO 12:12
PROVIDERS: ATTEND Internal Medicine
DX: K22.70 Barrett's esophagus without dysplasia (principal); Z46.89 Encounter for fitting and adjustment of other specified devices; J45.909 Unspecified asthma, uncomplicated; M79.7 Fibromyalgia; M19.90 Unspecified osteoarthritis, unspecified site; K21.9 Gastro-esophageal reflux disease without esophagitis; Z88.1 Allergy status to other antibiotic agents; Z87.891 Personal history of nicotine dependence; Z79.899 Other long term (current) drug therapy; Z79.891 Long term (current) use of opiate analgesic; Z90.49 Acquired absence of other specified parts of digestive tract; Z98.890 Other specified postprocedural states; Z90.89 Acquired absence of other organs; Z96.651 Presence of right artificial knee joint; Z96.89 Presence of other specified functional implants
CPT/HCPCS: 43247; J2001; J2704; 44799

== ENCOUNTER 2020-11-23 13:24 | Emergency (ER) | payer OTHER ==
[2020-11-23 13:37] VITALS: RESP 18; TEMP 98
[2020-11-23] MEDS ORDERED: ONDANSETRON 4 MG/2 ML VIAL IVP STA ×2 (14:58→17:11)
[2020-11-23] MEDS ORDERED: SODIUM CHLORIDE 0.9% 1,000 ML IV STA (14:58)
[2020-11-23] MEDS ORDERED: MORPHINE SULFATE 4 MG/ML SYRINGE IV STA (14:58)
[2020-11-23 15:49] LABS: Basophils # (A) 0.1 k/uL (0-0.2); Basophils % (A) 1 %; Eosinophils # (A) 0.2 k/uL (0-0.7); Eosinophils % (A) 2 %; HCT 44.6 % (34.0-46.0); HGB 14.6 gm/dL (11.4-16.0); Lymphocytes # (A) 2.6 k/uL (1.0-4.8); Lymphocytes % (A) 29 %; MCHC 32.8 g/dL (31.0-37.0); MCV 82.3 fL (80.0-100.0); Mean Platelet Volume 6.5; Monocytes # (A) 0.4 k/uL (0-1.0); Monocytes % (A) 5 %; Neutrophils # (A) 5.6 k/uL (1.3-7.7); Neutrophils % (A) 62 %; Platelet Count 277 k/uL (150-450); RBC 5.42 m/uL (3.80-5.40); WBC 8.9 k/uL (3.8-10.6)
[2020-11-23 16:03] LABS: ALT 29 U/L (4-34); AST 45 U/L (14-36); African American GFR (CKD) >90 (>60 ml/min/1.73 sqM); Albumin 4.7 g/dL (3.5-5.0); Alkaline Phosphatase 223 U/L (38-126); Amylase 84 U/L (30-110); Anion Gap 12 mmol/L; Blood Urea Nitrogen 15 mg/dL (7-17); Calcium 10.3 mg/dL (8.4-10.2); Carbon Dioxide 23 mmol/L (22-30); Chloride 103 mmol/L (98-107); Glucose 92 mg/dL (74-99); Lipase 52 U/L (23-300); Non-African American GFR(CKD) 83 (>60 ml/min/1.73 sqM); Sodium 138 mmol/L (137-145); Total Bilirubin 0.8 mg/dL (0.2-1.3); Total Protein 7.9 g/dL (6.3-8.2)
--- NOTE | 2020-11-23 16:30 | XR ---
EXAMINATION TYPE: XR chest 2V DATE OF EXAM: 11/23/2020 COMPARISON: NONE HISTORY: Shortness of breath TECHNIQUE: Frontal and lateral views of the chest are obtained. FINDINGS: Scattered senescent parenchymal changes noted. Hyperinflation compatible with COPD. No evidence for infiltrate. No evidence for atelectasis. Heart size is stable. Mediastinal structures are stable and grossly unremarkable. No evidence for hilar prominence. Degenerative changes dorsal spine. IMPRESSION: 1. No evidence for acute pulmonary disease.
[2020-11-23 16:33] LABS: Appearance,Urine Cloudy (Clear); Bacteria,Urine Rare /hpf; Bilirubin,Urine Negative (Negative); Blood,Urine Negative (Negative); Color,Urine Yellow; Glucose,Urine (UA) Negative (Negative); Hyaline Casts,Urine 3 /lpf (0-2); Ketones,Urine 1+ (Negative); Leukocyte Esterase,Urine Large (Negative); Mucus,Urine Many /hpf; Nitrite,Urine Negative (Negative); PH, Urine 7.5 (5.0-8.0); Protein,Urine 1+ (Negative); RBC,Urine 3 /hpf (0-5); Squamous Epithelial Cell,Urine 61 /hpf (0-4); Urobilinogen,Urine <2.0 mg/dL (<2.0); WBC,Urine 29 /hpf (0-5)
[2020-11-23] MEDS ORDERED: cefTRIAXone IN SWFI 1,000 MG/10 ML SYRINGE IVP STA (16:40)
--- NOTE | 2020-11-23 17:07 | ED ---
Nausea/Vomiting/Diarrhea HPI - General Chief complaint: Nausea/Vomiting/Diarrhea Stated complaint: Dehydration/Chills Time Seen by Provider: 11/23/20 14:42 Source: patient, RN notes reviewed Mode of arrival: wheelchair Limitations: no limitations - History of Present Illness Initial comments: She is a 50-year-old female that presents to the emergency department complaining of nausea vomiting and not feeling well for several days. Her family member noted that she got a tummy tuck in his since then not felt well. Patient stated that she felt cold was nauseous had difficulty eating and keeping fluids down. She notes that she was able to eat some pizza yesterday. She notes that she has a pain pump that is possibly empty because she has a metal t aste in her mouth. She notes this happened last time her pain pump was empty. Patient was otherwise well-appearing. She denied any chest pain shortness of breath headache diarrhea constipation fever fatigue chills. - Related Data Home Medications Medication Instructions Recorded Confirmed HYDROcodone/APAP 10-325MG [[place] 1 tab PO Q4HR PRN 07/07/15 11/15/19 10-325] Cyclobenzaprine HCl 10 mg PO HS 12/30/17 11/15/19 Gabapentin [Neurontin] 600 mg PO QAM 12/30/17 11/15/19 Albuterol Inhaler (Mhu) [Ventolin 1 - 2 puff INHALATION RT-Q4H PRN 09/01/18 Hfa Inhaler] Dilaudid Pain Pump 1 applic INTRATHECA CONTINUOUS 09/01/18 11/15/19 Furosemide [Lasix] 20 mg PO DAILY PRN 09/01/18 11/15/19 Lansoprazole [Prevacid] 30 mg PO BID 09/01/18 11/15/19 Diclofenac Sodium 50 mg PO BID 11/11/19 11/15/19 Famotidine 40 mg PO HS 11/11/19 11/15/19 Potassium Chloride [Klor-Con 20] 20 meq PO BID PRN 11/11/19 11/15/19 Pregabalin [Lyrica] 150 mg PO HS 11/11/19 11/15/19 Simethicone [Gas-X] 125 mg PO TID 11/11/19 11/15/19 Previous Rx's Medication Instructions Recorded Ondansetron Odt [Zofran Odt] 4 mg PO Q8HR PRN #10 tab 11/23/20 Allergies Allergy/AdvReac Type Severity Reaction Status Date / Time azithromycin [From Zithromax] Allergy Swelling Verified 11/23/20 13:32 Review of Systems ROS Statement: Those systems with pertinent positive or pertinent negative responses have been documented in the HPI. ROS Other: All systems not noted in ROS Statement are negative. Past Medical History Past Medical History: Fibromyalgia, GERD/Reflux, Osteoarthritis (OA) Additional Past Medical History / Comment(s): Chronic low back pain w/ dilaudid pain pump in place; arthritis bilateral knees, LT HIP - STEROID EPID, LAST 1 MO AGO. occasional constipation. HX STOMACH ULCERS. C/O BURNING IN STOMACH, LYMPHEDEMA RT LEG/FOOT. History of Any Multi-Drug Resistant Organisms: None Reported Past Surgical History: Appendectomy, Back Surgery, Section, Cholecystectomy, Joint Replacement, Orthopedic Surgery, Tonsillectomy Additional Past Surgical History / Comment(s): Low back surgery x3 with rods and screws, pain pump, L plantar fasciotomy, EPID STEROID INJ, LT HIP TISSUE EXC, LT KNEE SCOPE, left hip replacement, ERCP with stent placement, pinniculectomy Past Anesthesia/Blood Transfusion Reactions: Motion Sickness Past Psychological History: Anxiety, Bipolar, Depression Smoking Status: Never smoker Past Alcohol Use History: Rare Past Drug Use History: None Reported - Past Family History Father Family Medical History: Coronary Artery Disease (CAD) Additional Family Medical History / Comment(s): Father had CABG. He is from unknown causes. Mother Family Medical History: Cancer, Fibromyalgia, Osteoarthritis (OA) Additional Family Medical History / Comment(s): Mother id 68yrs old and has back problems. Back problems run in mother's side of family. SKIN CA General Exam Limitations: no limitations General appearance: alert, in no apparent distress Head exam: Present: atraumatic, normocephalic, normal inspection Eye exam: Present: normal appearance, PERRL, EOMI. Absent: scleral icterus, conjunctival injection, periorbital swelling Neck exam: Present: normal inspection Respiratory exam: Present: normal lung sounds bilaterally. Absent: respiratory distress, wheezes, rales, rhonchi, stridor Cardiovascular Exam: Present: regular rate, normal rhythm, normal heart sounds. Absent: systolic murmur, diastolic murmur, rubs, gallop, clicks GI/Abdominal exam: Present: soft, normal bowel sounds. Absent: distended, tenderness, guarding, rebound, rigid Extremities exam: Present: normal inspection, full ROM, normal capillary refill. Absent: tenderness, pedal edema, joint swelling, calf tenderness Neurological exam: Present: alert, oriented X3 Psychiatric exam: Present: normal affect, normal mood Skin exam: Present: warm, dry, intact, normal color. Absent: rash Course Vital Signs 11/23/20 13:32 Temperature 98 F Pulse Rate 95 Respiratory 18 Rate Blood Pressure 121/82 O2 Sat by Pulse 100 Oximetry Medical Decision Making - Medical Decision Making 50-year-old female complaining of nausea and not feeling well for the last several days. Labs, 1 L normal saline, 4 mg of Zofran, CT of the abdomen and pelvis, 4 mg of morphine ordered. Labs grossly unremarkable. Urinalysis shows many white blood cells, 1 g of Rocephin ordered. Chest x-ray negative for any acute cardiopulmonary disease. Case discussed with Dr. Amador, patient can discharge home with follow-up primary care and specialist. - Lab Data Result diagrams: 11/23/20 15:02 11/23/20 15:02 Lab Results 11/23/20 11/23/20 11/23/20 Range/Units 15:02 15:02 15:02 WBC 8.9 (3.8-10.6) k/uL RBC 5.42 H (3.80-5.40) m/uL Hgb 14.6 (11.4-16.0) gm/dL Hct 44.6 (34.0-46.0) % MCV 82.3 (80.0-100.0) fL MCH 27.0 (25.0-35.0) pg MCHC 32.8 (31.0-37.0) g/dL RDW 14.0 (11.5-15.5) % Plt Count 277 (150-450) k/uL MPV 6.5 Neutrophils % 62 % Lymphocytes % 29 % Monocytes % 5 % Eosinophils % 2 % Basophils % 1 % Neutrophils # 5.6 (1.3-7.7) k/uL Lymphocytes # 2.6 (1.0-4.8) k/uL Monocytes # 0.4 (0-1.0) k/uL Eosinophils # 0.2 (0-0.7) k/uL Basophils # 0.1 (0-0.2) k/uL Sodium 138 (137-145) mmol/L Potassium 4.0 (3.5-5.1) mmol/L Chloride 103 (98-107) mmol/L Carbon Dioxide 23 (22-30) mmol/L Anion Gap 12 mmol/L BUN 15 (7-17) mg/dL Creatinine 0.82 (0.52-1.04) mg/dL Est GFR (CKD-EPI)AfAm >90 (>60 ml/min/1.73 sqM) Est GFR (CKD-EPI)NonAf 83 (>60 ml/min/1.73 sqM) Glucose 92 (74-99) mg/dL Calcium 10.3 H (8.4-10.2) mg/dL Total Bilirubin 0.8 (0.2-1.3) mg/dL AST 45 H (14-36) U/L ALT 29 (4-34) U/L Alkaline Phosphatase 223 H (38-126) U/L Total Protein 7.9 (6.3-8.2) g/dL Albumin 4.7 (3.5-5.0) g/dL Amylase 84 (30-110) U/L Lipase 52 (23-300) U/L Urine Color Yellow Urine Appearance Cloudy H (Clear) Urine pH 7.5 (5.0-8.0) Ur Specific [place] 1.030 (1.001-1.035) Urine Protein 1+ H (Negative) Urine Glucose (UA) Negative (Negative) Urine Ketones 1+ H (Negative) Urine Blood Negative (Negative) Urine Nitrite Negative (Negative) Urine Bilirubin Negative (Negative) Urine Urobilinogen <2.0 (<2.0) mg/dL Ur Leukocyte Esterase Large H (Negative) Urine RBC 3 (0-5) /hpf Urine WBC 29 H (0-5) /hpf Ur Squamous Epith Cells 61 H (0-4) /hpf Urine Bacteria Rare H (None) /hpf Hyaline Casts 3 H (0-2) /lpf Urine Mucus Many H (None) /hpf - EKG Data -: EKG Interpreted by Ok EKG shows normal: sinus rhythm Rate: normal EKG Comments: Ventricular rate 74 bpm, ME interval 148 ms, QRS duration 70 ms, QTC 457 ms, PRT axes 52/24/40. Normal sinus rhythm, low voltage QRS, borderline ECG. - Radiology Data Radiology results: report reviewed, image reviewed Chest x-ray: No evidence for acute pulmonary disease. Disposition Clinical Impression: Dehydration, Abdominal pain, Nausea & vomiting Disposition: HOME SELF-CARE Condition: Stable Instructions (If sedation given, give patient instructions): Acute Nausea and Vomiting (ED), Abdominal Pain (ED) Additional Instructions: Please return to the Emergency Department if symptoms worsen or any other concerns. Follow-up with primary care in the next several days. Follow-up with GI specialist as needed. Take Zofran as prescribed. Take, Motrin as needed for pain. Prescriptions: Ondansetron Odt [Zofran Odt] 4 mg PO Q8HR PRN #10 tab PRN Reason: Nausea Is patient prescribed a controlled substance at d/c from ED?: No Referrals: Roberto Dominguez DO [Primary Care Provider] - 1-2 days Uri Muñoz MD [STAFF PHYSICIAN] - 1-2 days Time of Disposition: 17:07
[2020-11-23 18:00] VITALS: BP 114/68; PULSE 80
== END 2020-11-23 17:56 | disposition home or self-care (01) ==
LOC: EC 13:24
DX: E86.0 Dehydration (principal); R10.9 Unspecified abdominal pain; M79.7 Fibromyalgia; M19.90 Unspecified osteoarthritis, unspecified site; K21.9 Gastro-esophageal reflux disease without esophagitis; Z88.1 Allergy status to other antibiotic agents; Z90.49 Acquired absence of other specified parts of digestive tract; Z79.899 Other long term (current) drug therapy; Z79.1 Long term (current) use of non-steroidal anti-inflammatories (NSAID)
CPT/HCPCS: 36415; 93005; 80053; 82150; 83690; 85025; 81001; 87086; 71046; 99284; 96374; 96375; 96376; 96361; J2270; J2405; J0696; 99285

== ENCOUNTER → 2022-04-24 | Outpatient (CLI) | payer OTHER ==
--- NOTE | 2022-04-25 09:26 | MR ---
EXAMINATION TYPE: MR knee LT wo con DATE OF EXAM: 04/24/2022 COMPARISON: NONE HISTORY: Osteoarthritis right knee, pain swelling and locking. TECHNIQUE: Multiplanar, multisequence images of the knee is performed without IV contrast. FINDINGS: MEDIAL MENISCUS: Truncated appearance to the posterior horn extending into the central body. LATERAL MENISCUS: Anterior and posterior horns are intact without tear. CRUCIATE LIGAMENTS: The posterior cruciate ligament is intact and unremarkable. Distal portion of the anterior cruciate ligament has increased signal and thickening or fanning of fibers as it attaches o n the anterior central tibia. COLLATERAL LIGAMENTS: The medial collateral ligament and lateral collateral ligament complex are inta ct and unremarkable. EXTENSOR MECHANISM: Visualized quadriceps and patellar tendons are intact. EFFUSION: Small size suprapatellar joint effusion. POPLITEAL CYST: Small size popliteal/thompson cyst. TRICOMPARTMENT SPACES: Mild to moderate Moderate tricompartment joint space loss and fairly moderate tricompartment spurring CARTILAGE: Translation patella with areas of full-thickness cartilaginous loss greatest along the sup erior aspect of the posterior patella. Cartilaginous loss medial tibiofemoral compartment is present. BONE MARROW SIGNAL: There is some heterogeneous increased T2 signal involving the posterior superior patella at the site of full-thickness chondromalacia patella. OTHER: No additional significant abnormality is appreciated. IMPRESSION: 1. Tricompartment degenerative changes which are at least moderate to borderline advanced and somewha t prominent for patient's chronologic age as detailed above. 2. Full-thickness tear posterior horn medial meniscus extending into central body. 3. At least intrasubstance tear and/or partial tearing of the distal ACL. 4. Small suprapatellar joint effusion. 5. Small popliteal cyst.
== END | disposition home or self-care (01) ==
LOC: RADMRIMAIN 07:18
PROVIDERS: ATTEND Anesthesiology Pain Medicine
DX: M23.222 Derangement of posterior horn of medial meniscus due to old tear or injury, left knee (principal); M17.12 Unilateral primary osteoarthritis, left knee; M25.462 Effusion, left knee; M71.22 Synovial cyst of popliteal space [Baker], left knee

== ENCOUNTER → 2024-09-21 | Outpatient (CLI) | payer OTHER ==
--- NOTE | 2024-09-21 12:36 | MM ---
Reason for Exam: Screening (asymptomatic). Patient History: Menarche at age 10. First Full-Term at age 34. Late child-bearing (after 30). Postmenopausal. Maternal grandmother had breast cancer at or over age 50. Risk Values: Dona 5 year model risk: 1.7%. NCI Lifetime model risk: 12.4%. Prior Study Comparison: No prior studies available for comparison. Tissue Density: The breasts are almost entirely fatty. Findings: Analyzed By CAD. Right breast: There is no suspicious group of microcalcifications or new suspicious mass. Left breast: There is no suspicious group of microcalcifications or new suspicious mass. Overall Assessment: Negative, BI-RAD 1 Management: Screening Mammogram of both breasts in [address] [facility] will attempt to contact patient to return for supplemental views and ultrasound if indicated. Patient should continue monthly self-breast exams. A clinical breast exam by your physician is recommended on an annual basis. This exam should not preclude additional follow-up of suspicious palpable abnormalities. Note on Dona scores and lifetime risk: 1. A Dona score greater than 3% is considered moderate risk. If this is the case, consider specialist referral to assess eligibility for a risk reducing agent. 2. If overall lifetime risk for the development of breast cancer is 20% or higher, the patient may qualify for future screening with alternating mammogram and breast MRI. [facility], , 09/21/2024 12:33 PM. Electronically signed and approved by: Tio Escobar DO
== END | disposition home or self-care (01) ==
LOC: RADMAMWWP 09:28
PROVIDERS: ATTEND Family Medicine
DX: Z12.31 Encounter for screening mammogram for malignant neoplasm of breast (principal); R92.313 Mammographic fatty tissue density, bilateral breasts; Z78.0 Asymptomatic menopausal state; Z80.3 Family history of malignant neoplasm of breast
CPT/HCPCS: 77067

== ENCOUNTER → 2024-11-29 | Outpatient (CLI) | payer OTHER ==
--- NOTE | 2024-11-30 08:06 | MR ---
INDICATION: Patient age:Female; 54 years old; Reason for study: M96.1; [facility]. COMPARISONS: Lumbar spine radiographs 10/10/2019, CT abdomen and pelvis 12/30/2017. TECHNIQUE: Multi planar, multi sequence imaging was performed utilizing: T1-weighted, T2-weighted, a nd turbo inversion recovery imaging of the lumbar spine. The patient was not given contrast. FINDINGS: Postsurgical changes with bilateral pedicular screws and rods and intervertebral disc hard arreola at L5-S1 with laminectomy. This creates susceptibility artifact which limits evaluation. The lum bar vertebral bodies do have preserved heights. Grade 1 retrolisthesis of L1 on L2, L2 on L3, and L3 on L4. Multilevel anterior osteophytosis. Type I Modic changes involving the endplates around the L2- L3 disc. Acute Schmorl's node involving the superior endplate of the L3 vertebral body. Multilevel di sc desiccation is present. The conus medullaris and the distal spinal cord do appear unremarkable wi th regards to their signal intensity and morphology. T12-L1: No significant disc pathology. No spinal canal stenosis. No neural foraminal stenosis. L1-L2: Diffuse disc bulge. No significant spinal canal stenosis. Bilateral facet arthropathy. No sig nificant neural foraminal stenosis.. L2-L3: Diffuse disc bulge. No significant spinal canal stenosis. Bilateral facet arthropathy. Mild r ight and moderate left neural foraminal stenosis. L3-L4: Diffuse disc bulge.No significant spinal canal stenosis. Bilateral facet arthropathy. Mild bi lateral neural foraminal stenosis. L4-L5: Eccentric right base disc bulge. No significant spinal canal stenosis. There is close proximit y to the exiting right L5 nerve root. Bilateral facet arthropathy. Moderate right and mild left neura l foraminal stenosis. L5-S1: Postsurgical changes. No spinal canal or neural foraminal stenosis. Other significant findings: Right lateral lower abdominal subcutaneous tissue spinous stimulator gerardo ce identified. This creates susceptibility artifact which limits evaluation. IMPRESSION: Postsurgical changes from posterior fusion L5-S1. Multilevel degenerative disc disease and facet arth ropathy as described above. No evidence for significant spinal canal stenosis or disc herniation. Gra de 1 retrolisthesis of L1 on L2, L2 on L3, and L3 on L4. Acute Schmorl's node involving the superior endplate of the L3 vertebral body. [facility], , 11/30/2024 8:04 AM
== END | disposition home or self-care (01) ==
LOC: RADMRIMAIN 19:04
PROVIDERS: ATTEND Student in an Organized Health Care Education/Training Program
DX: M51.369 Other intervertebral disc degeneration, lumbar region without mention of lumbar back pain or lower extremity pain (principal); M96.1 Postlaminectomy syndrome, not elsewhere classified; M47.816 Spondylosis without myelopathy or radiculopathy, lumbar region; M43.16 Spondylolisthesis, lumbar region; Z98.1 Arthrodesis status
CPT/HCPCS: 72148